=== PATIENT | male | born 2000 | race Caucasian/White ===

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

== ENCOUNTER → 2024-02-23 | Outpatient (CLI) | payer OTHER, BC ==
--- NOTE | 2024-02-23 22:00 | MR ---
INDICATION: Patient age:Male; 23 years old; Reason for study: G04.90; left eye pain radiating to the back of the head into the mid back, migraine s, encephalomyelitis. COMPARISON: No priors. TECHNIQUE: Multi planar, multi sequence imaging was performed before and after the uneventful adminis tration at 10 mL of Gadavist intravenously. FINDINGS: The thoracic vertebral bodies have preserved heights and alignment. The osseous structure have normal signal intensity. Thoracic spinal cord appears unremarkable. CSF slow flow artifact demonstrated. Th ere is no evidence of extradural defects or central spinal canal narrowing at any thoracic vertebral body level. Intervertebral discs demonstrate normal signal intensity. No abnormal contrast enhanceme nt. IMPRESSION: Normal MRI of the thoracic spine. No abnormal contrast enhancement. [facility], , 02/23/2024 9:58 PM
== END | disposition home or self-care (01) ==
LOC: RADMRIMAIN 21:00
PROVIDERS: ATTEND Psychiatry & Neurology Neurology
DX: G04.90 Encephalitis and encephalomyelitis, unspecified (principal)
CPT/HCPCS: 72157; A9585